=== PATIENT | female | born 1945 | race Two or more races ===

== ENCOUNTER → 2017-05-29 | Emergency (ER) | payer OTHER ==
[~2017-05-29] VITALS: Ht 157.5 cm; Wt 67.1 kg
[~2017-05-29] MED LIST: LIPITOR20 MG; RAMIPRIL10 MG; SYNTHROID50 MCG
== END | disposition home or self-care (01) ==
LOC: ER 08:47
DX: R10.32 Left lower quadrant pain (principal); R10.813 Right lower quadrant abdominal tenderness